=== PATIENT | female | born 1980 | race Caucasian/White ===

== ENCOUNTER 2022-05-19 07:14 | Day surgery (SDC) | payer MEDICAID ==
[~2022-05-19] VITALS: Ht 167.6 cm; Wt 72.1 kg
[2022-05-19] MEDS ORDERED: MEPERIDINE 50 MG/ML VIAL ONE (07:48)
[2022-05-19] MEDS ORDERED: MIDAZOLAM HCL 5 MG/5 ML VIAL ONE (07:48)
[2022-05-19 14:15] VITALS: BP_SYST 111
== END 2022-05-19 10:40 | disposition home or self-care (01) ==
LOC: SDS 07:14 → SMU 09:22 → SDS 10:40
PROVIDERS: ATTEND Internal Medicine Gastroenterology
DX: K59.00 Constipation, unspecified (principal); K57.30 Diverticulosis of large intestine without perforation or abscess without bleeding; F17.210 Nicotine dependence, cigarettes, uncomplicated; Z20.822 Contact with and (suspected) exposure to COVID-19
CPT/HCPCS: 45380; 87426; 36415; 88305; 99152; 99153; G0378; J2250; J2175